=== PATIENT | female | born 1985 ===

== ENCOUNTER 2018-07-07 02:19 | Inpatient (IN) ==
[2018-07-07] MEDS ORDERED: LACTATED RINGER'S 1,000 ML IV PRN ×2 (03:28→03:37)
[2018-07-07] MEDS ORDERED: OXYTOCIN 30 UNITS/500 ML BAG IV PRN ×3 (03:28→15:44)
[2018-07-07] MEDS ORDERED: LACTATED RINGER'S 1,000 ML IV SCH (03:30)
--- NOTE | 2018-07-07 03:37 | History & Physical Report ---
Date of Service July 07, 2018 Assessment & Plan (1) 40 weeks gestation of : 32yo @ 40 0/7 with SROM Cat 1 FHT. Will admit to L&D, IV access, EFM/toco, labs. Patient desires natural labor and is not planning for an epidural. 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 I recommended to her that she start pitocin if labor does not progress by 6h after SROM, and she is agreeable to this plan. History of Present Illness Chief Complaint: SROM, decreased movement Primary Care Provider: NO PCP 32yo @ 40 0/7 presents after she began continuously leaking clear fluid at 0140 this morning. Not feeling contractions, no vaginal bleeding. At the time she called, she was not feeling much movement, therefore she was recommended to present to L&D for monitoring strip. +movement at L&D. uncomplicated. Allergies Allergy/AdvReac Type Severity Reaction Status Date / Time No Known Allergies Allergy Verified 07/07/18 02:55 Home Medications Home Medications Medication Instructions Recorded Confirmed Type PNV cmb#95-ferrous fumarate-FA See Label Instructions .ROUTE 07/07/18 07/07/18 History [] .COMPLEX calcium carbonate [Calcium 500] 500 mg PO BID 07/07/18 07/07/18 History Patient History Medical History [place] teeth extracted 2012 Family History Family/Other Diabetes Grandfather (Paternal) Cancer Father Hypertension Grandmother (Maternal) Cancer Review of Systems All systems reviewed & are unremarkable except as noted in HPI & below Physical Exam 2 Vital Signs (Past 24 Hours): Last Vital Signs Temp 36.7 C 07/07/18 02:39 Pulse 89 07/07/18 02:39 Resp 20 07/07/18 02:39 BP 121/81 07/07/18 02:39 Physical Exam: Gen: AAOx3 NAD CV: [id number] L: CTAB Abd: soft, gravid, NTTP Ext: no edema SVE: 5/100/-2. +ferning, +nitrizine FHT: Cat 1, reactive NST. [place]: occasional ctx
[2018-07-07 04:15] LABS: Hematocrit (blood only) 40.7 % (37-47); Hemoglobin 13.7 g/dL (12.0-16.0); Mean Corpuscular Volume 92.1 fL (80-100); Mean Platelet Volume 11.3 fL (7.4-10.4); Platelet Count 204 K/uL (130-400); RDW Coefficient of Variation 13.4 % (11.5-14.5); RDW Standard Deviation 44.5 fL (36.4-46.3); Red Blood Count 4.42 M/uL (4.2-5.4); White Blood Count 10.04 K/uL (4.8-10.8)
[2018-07-07 04:21] LABS: Mean Corpuscular Hgb Conc 33.7 g/dL (32-36)
--- NOTE | 2018-07-07 07:45 | Obstetrical Progress Note ---
Date of Service July 07, 2018 Subjective Patient has ambulated, it has been about 6h since ROM. No increase in ctx. FHT Cat 1 [place] rare SVE 5/100/-2. Palpable bulging membranes now. Patient is agreeable to start pitocin at this time. She is requesting to eat a small amount prior to pitocin. Since she is not in active labor, I think this is reasonable to have a small amount of breakfast and then start pitocin. She still desires as natural a labor as possible. Physical Exam 2 Vital Signs (Past 24 Hours): Last Vital Signs Temp 36.6 C 07/07/18 07:05 Pulse 82 07/07/18 07:09 Resp 20 07/07/18 07:05 BP 127/82 07/07/18 07:09
--- NOTE | 2018-07-07 08:57 | Obstetrical Progress Note ---
Date of Service July 07, 2018 Assessment & Plan (1) 40 weeks gestation of : (2) PROM (premature rupture of membranes): needs to start pitocin, i rec induction at this time. categ 1 Subjective no ctx. pt aware I am taking over care. Physical Exam 2 Vital Signs (Past 24 Hours): Last Vital Signs Temp 36.6 C 07/07/18 07:05 Pulse 82 07/07/18 07:09 Resp 18 07/07/18 08:30 BP 127/82 07/07/18 07:09 Constitutional: WD/WN, vitals as above Genitourinary: per Dr. Hardin exam.
--- NOTE | 2018-07-07 14:37 | Obstetrical Progress Note ---
Date of Service July 07, 2018 Assessment & Plan (1) PROM (premature rupture of membranes): cont with pit, can see how arom forebag helps labor pattern, also increased pit max to 30 if needed. fhts categ 1 (2) 40 weeks gestation of : Subjective pt standing at beside on my arrival in room. plans unmedicated . Physical Exam 2 Vital Signs (Past 24 Hours): Last Vital Signs Temp 36.7 C 07/07/18 12:57 Pulse 81 07/07/18 12:57 Resp 20 07/07/18 13:55 BP 117/81 07/07/18 13:58 Constitutional: WD/WN, vitals as above Genitourinary: Manual OB Exam: + cervical dilation 8 cm, + cervical effacement 100%, + station 0 and + amniotic fluid (AROM forebag) clear OB Exam Monitor Tracing: + external FHT monitor used (mod variability), + external uterine monitor used (q2-3 min, pit at 20), + category I and + normal FHT variability
[2018-07-07] MEDS ORDERED: METHYLERGONOVINE MALEATE 0.2 MG/ML AMP ONE (15:22)
[2018-07-07] MEDS ORDERED: DIPHTHERIA/TETANUS/PERTUSSIS 0.5 ML SYR/VIAL IM ONE (15:44)
[2018-07-07] MEDS ORDERED: HYDROCORTISONE ACETATE 25 MG SUPP PR PRN (15:44)
[2018-07-07] MEDS ORDERED: METHYLERGONOVINE MALEATE 0.2 MG/ML AMP IM ONE (15:44)
[2018-07-07] MEDS ORDERED: OXYCODONE/ACETAMINOPHEN 5mg/325mg TAB PO PRN (15:44)
[2018-07-07] MEDS ORDERED: SUPERCREAM 0.870% 15 GM JAR EXT PRN (15:44)
[2018-07-07] MEDS ORDERED: ACETAMINOPHEN 325 MG TAB PO PRN (15:44)
[2018-07-07] MEDS ORDERED: BENZOCAINE 20% AER SPR 82.5 GM CAN EXT PRN (15:44)
[2018-07-07] MEDS ORDERED: OXYTOCIN 30 UNITS/500ML NSS ONE (15:51)
[2018-07-07] MEDS ORDERED: IBUPROFEN 600 MG TAB PO ONE (15:51)
[2018-07-07] MEDS ORDERED: OXYTOCIN 20 UNITS in LACTATED RINGER'S 1,000 ML IV SCH (16:00)
--- NOTE | 2018-07-07 16:27 | Delivery Summary ---
DATE OF OPERATION: 07/07/2018 DELIVERY SUMMARY: The patient dilated to complete and pushed to deliver a viable female infant, Apgars 8 and 9 via over small vaginal laceration. Nose and mouth bulb suctioned at the perineum. Shoulders and body delivered with ease. was vigorous and crying at . Placenta delivered spontaneously intact, 3-vessel cord. Hemostasis not achieved with dilute Pitocin alone and therefore, 0.2 mg of IM Methergine administered after the blood pressure was noted. Uterine tone was improving. Cervix and sulci intact. Vaginal laceration repaired with a single interrupted suture of 3-0 Vicryl. EBL 300 mL. Mother and baby stable in recovery. I attest to the content of the Intraoperative Record and any orders documented therein. Any exception s are noted below.
[2018-07-07] MEDS: DOCUSATE SODIUM 100 MG CAP PO SCH (20:41)
[2018-07-07] MEDS: IBUPROFEN 600 MG TAB PO PRN (20:41)
[2018-07-08 06:49] LABS: Hematocrit (blood only) 38.2 % (37-47); Hemoglobin 13.4 g/dL (12.0-16.0)
--- NOTE | 2018-07-08 07:21 | Obstetrical Progress Note ---
Date of Service <Rabia Verduzco MD - Last Filed: 07/08/18 07:40> July 08, 2018 Assessment & Plan <Rabia Verduzco MD - Last Filed: 07/08/18 07:40> (1) (spontaneous vaginal delivery): 32yo at 40w with . PPD#1 Routine Care: -ambulation as tolerated -Food and hydration -Pain control -Discharge possible today given pt's preference. Subjective <Rabia Verduzco MD - Last Filed: 07/08/18 07:40> Ambulation: ambulating normally Voiding: no voiding problems Passing Gas:: Yes Diet Tolerance:: regular diet Lochia:: Moderate Feeding Type:: breast feeding Current Pain Level(1-10): 0 Constitutional: no fever and no chills Eyes: no problem reported Respiratory: no dyspnea Cardiovascular: no chest pain, no palpitations, no lightheadedness, no edema and no calf pain Physical Exam <Rabia Verudzco MD - Last Filed: 07/08/18 07:40> Vital Signs (Past 24 Hours) Last Vital Signs Temp 36.8 C 07/08/18 04:15 Pulse 71 07/08/18 04:15 Resp 16 07/08/18 04:15 BP 113/72 07/08/18 04:15 Pulse Ox 98 07/07/18 19:50 Respiratory normal respiratory effort, lungs clear to auscultation Cardiovascular RRR, no murmur, no edema Extremities: no calf tenderness and no pedal edema Genitourinary OB Exam Abdomen: + fundal height Fundus: + firm; not tender and not boggy Results & Data <Rabia Verduzco MD - Last Filed: 07/08/18 07:40> Laboratory Results Laboratory Results - last 24 hr 07/08/18 06:22 Hgb 13.4 Hct 38.2 Medications Administered Home Medications PNV cmb#95-ferrous fumarate-FA [] See Label Instructions .ROUTE .COMPLEX 07/07/18 [History Confirmed 07/07/18] calcium carbonate [Calcium 500] 500 mg PO BID 07/07/18 [History Confirmed ] Active Medications Acetaminophen (Tylenol) 650 mg PO Q6H PRN PRN Reason: Pain/SINGH/Fever Stop: 08/06/18 15:43 Benzocaine (Dermoplast Pain Relieving [place]) 1 appln EXT PRN PRN PRN Reason: Perineal Discomfort Stop: 08/06/18 15:43 Last Admin: 07/07/18 18:34 Dose: 82.5 appln Cocaine HCl (Supercream 0.870%) 1 gm EXT BID PRN PRN Reason: Hemorrhoidal Inflammation Stop: 07/21/18 15:43 Docusate Sodium (Colace) 100 mg PO BID [facility] Stop: 08/06/18 20:59 Last Admin: 07/07/18 20:41 Dose: 100 mg Hydrocortisone (Anusol Hc) 25 mg [place] BID PRN PRN Reason: Hemorrhoidal Inflammation Stop: 08/06/18 15:43 Oxytocin 20 units/ Lactated (Ringer's) 1,002 mls @ 125 mls/hr IV .Q8H1M [facility] Stop: 08/06/18 15:43 Last Infusion: 07/08/18 02:40 Dose: Infused Oxytocin (Pitocin) 30 units in 500 mls @ 0 mls/hr IV .Q1H30M PRN; Protocol PRN Reason: BLEEDING CONTROL Stop: 08/06/18 15:43 Last Titration: 07/07/18 17:30 Dose: 0 units/hr, 0 mls/hr Ibuprofen (Motrin) 600 mg PO Q4H PRN PRN Reason: Pain/SINGH/Cramping/Fever Stop: 08/06/18 15:43 Last Admin: 07/07/18 20:41 Dose: 600 mg Oxycodone/Acetaminophen (Percocet 5mg/325mg) 1 tab PO Q4H PRN PRN Reason: Pain not relieved by... Stop: 07/21/18 15:43 Prenat Multivit/[place]/Iron/Folic Ac ( Vitamin) 1 tab PO QAM [facility] Stop: 08/07/18 08:59 <Anjali Rios MD, FACOG - Last Filed: 07/08/18 07:59> Co-Signing Physician Notes Resident Physician Supervision Note: I interviewed and examined the patient. Discussed with Dr. Verduzco and agree with findings and plan as documented in the note. Any exceptions or clarifications are listed here: Doing well. Denies complaints. Routine care. Documented By: Anjali Rios MD, FACOG
[2018-07-08] MEDS ORDERED: PRENATAL VITAMIN 1 TAB PO SCH (09:00)
[2018-07-08] MEDS: DOCUSATE SODIUM 100 MG CAP PO SCH (20:11)
[2018-07-08] MEDS: IBUPROFEN 600 MG TAB PO PRN (22:27)
--- NOTE | 2018-07-09 07:01 | Obstetrical Progress Note ---
Date of Service <Rabia Verduzco MD - Last Filed: 07/09/18 07:01> July 09, 2018 Assessment & Plan <Rabia Verduzco MD - Last Filed: 07/09/18 07:01> (1) (spontaneous vaginal delivery): 32yo at 40w with . PPD#2 Discharge today -instructions reviewed Subjective <Rabia Verduzco MD - Last Filed: 07/09/18 07:01> Ambulation: ambulating normally Voiding: no voiding problems Passing Gas:: Yes Diet Tolerance:: regular diet Lochia:: Moderate Feeding Type:: breast feeding Current Pain Level(1-10): 0 Respiratory: no dyspnea Cardiovascular: + edema; no chest pain, no palpitations, no lightheadedness and no calf pain Gastrointestinal: no nausea and no vomiting Neurologic: no headache(s) Physical Exam <Rabia Verduzco MD - Last Filed: 07/09/18 07:01> Vital Signs (Past 24 Hours) Last Vital Signs Temp 36.6 C 07/08/18 23:50 Pulse 88 07/08/18 23:50 Resp 18 07/08/18 23:50 BP 112/72 07/08/18 23:50 Pulse Ox 98 07/08/18 11:30 Respiratory normal respiratory effort, lungs clear to auscultation Cardiovascular Rate/Rhythm: regular rate and regular rhythm Heart Sounds: no murmur Extremities: + pedal edema; no calf tenderness Genitourinary OB Exam Abdomen: + fundal height Fundus: + firm; not tender and not boggy Results & Data <Rabia Verduzco MD - Last Filed: 07/09/18 07:01> Medications Administered Home Medications PNV cmb#95-ferrous fumarate-FA [] See Label Instructions .ROUTE .COMPLEX 07/07/18 [History Confirmed 07/07/18] calcium carbonate [Calcium 500] 500 mg PO BID 07/07/18 [History Confirmed ] Active Medications Acetaminophen (Tylenol) 650 mg PO Q6H PRN PRN Reason: Pain/SINGH/Fever Stop: 08/06/18 15:43 Benzocaine (Dermoplast Pain Relieving [place]) 1 appln EXT PRN PRN PRN Reason: Perineal Discomfort Stop: 08/06/18 15:43 Last Admin: 07/07/18 18:34 Dose: 82.5 appln Cocaine HCl (Supercream 0.870%) 1 gm EXT BID PRN PRN Reason: Hemorrhoidal Inflammation Stop: 07/21/18 15:43 Docusate Sodium (Colace) [address] [facility] Stop: 08/06/18 20:59 Last Admin: 07/08/18 20:11 Dose: 100 mg Hydrocortisone (Anusol Hc) 25 mg [place] BID PRN PRN Reason: Hemorrhoidal Inflammation Stop: 08/06/18 15:43 Oxytocin 20 units/ Lactated (Ringer's) 1,002 mls @ 125 mls/hr IV .Q8H1M [facility] Stop: 08/06/18 15:43 Last Infusion: 07/08/18 02:40 Dose: Infused Oxytocin (Pitocin) 30 units in 500 mls @ 0 mls/hr IV .Q1H30M PRN; Protocol PRN Reason: BLEEDING CONTROL Stop: 08/06/18 15:43 Last Titration: 07/07/18 17:30 Dose: 0 units/hr, 0 mls/hr Ibuprofen (Motrin) 600 mg PO Q4H PRN PRN Reason: Pain/SINGH/Cramping/Fever Stop: 08/06/18 15:43 Last Admin: 07/08/18 22:27 Dose: 600 mg Oxycodone/Acetaminophen (Percocet 5mg/325mg) 1 tab PO Q4H PRN PRN Reason: Pain not relieved by... Stop: 07/21/18 15:43 Prenat Multivit/[place]/Iron/Folic Ac ( Vitamin) [address] [facility] Stop: 08/07/18 08:59 <Gini Bazzi MD, FACOG - Last Filed: 07/09/18 07:02> Co-Signing Physician Notes Resident Physician Supervision Note: I interviewed and examined the patient. Discussed with [Name of resident] and agree with findings and plan as documented in the note. Any exceptions or clarifications are listed here: [None] Documented By: Gini Bazzi MD, FACOG
[2018-07-09] MEDS: DOCUSATE SODIUM 100 MG CAP PO SCH (08:44)
[2018-07-09 09:56] VITALS: BP 110/74; PULSE 72; TEMP 98.4; O2SAT 97
--- NOTE | 2018-07-12 14:06 | Coding Query ---
CODING QUERY To promote full compliance with coding requirements relating to patient care, provider participation is requested in all cases of school laboratory technician uncertainty. Please assist us with the question(s) below: Coding Question(s): Please document degree of laceration below Physician's Response(s): ( )first degree ( ) Second Degree ( ) Third Degree ( ) fourth Degree (x ) Other please specify: vaginal laceration, i was never trained to assign "degree" to this laceration. Thank you Qi Selby Principal Diagnosis: "that condition established after study, to be chiefly responsible for occasioning the admission of the patient to the hospital for care." Co-Existing Principal Diagnosis: "when two or more diagnoses equally meet the criteria for principal diagnosis as determined by the circumstances of admission, diagnostic work up, and/or therapy provided, and the Alphabetic Index, Tabular List, or another coding guideline does not provide sequencing direction, any one of the diagnoses may be sequenced first." "When the physician has documented what appears to be a current diagnosis in the body of the record, but has not included the diagnosis in the final diagnostic statement, the physician should be asked whether the diagnosis should be added." (Source [facility]oding [facility] 2 QTR90. p3-4) JUSTIN
== END 2018-07-09 12:20 | disposition home or self-care (01) | DRG 807 ==
LOC: OPB 02:19 → 4S1 02:23 → 4S2 18:15